=== PATIENT | female | born 1970 | race American Indian/Alaskan Native ===

== ENCOUNTER 2017-04-13 07:50 | Inpatient (IN) | payer OTHER ==
[2017-04-13 08:48] LABS: Bilirubin,Urine NEG (Negative); Blood,Urine NEG (Negative); Ketones,Urine NEG (Negative); Leukocyte Esterase,Urine NEG (Negative); Mucus,Urine 2+ /HPF; Nitrite,Urine NEG (Negative); Protein,Urine <15 mg/dL mg/dL (Negative); Urobilinogen,Urine < 2.0 mg/dL (<2.0)
[2017-04-13 09:00] LABS: Alanine Aminotransferase 21 units/L (7-56); Albumin/Globulin Ratio 1.1 %; Alkaline Phosphatase 38 units/L (35-129); Anion Gap 17 mmol/L; Blood Urea Nitrogen 12 mg/dL (7-17); Calcium 8.6 mg/dL (8.4-10.2); Carbon Dioxide 24 mmol/L (22-30); Chloride 101.9 mmol/L (98-107); Glucose 94 mg/dL (65-100); Lipase 39 units/L (13-60); Sodium 139 mmol/L (137-145); Total Protein 7.8 g/dL (6.3-8.2)
[2017-04-13 09:38] LABS: Basophils % (Auto) 1.9 % (0.0-1.8); Eosinophils % (Auto) 2.7 % (0.0-4.3); Mean Corpuscular HGB Conc 28 % (30-34); Platelet Count 448 K/mm3 (140-440); Red Blood Count 4.27 M/mm3 (3.65-5.03); White Blood Count 4.9 K/mm3 (4.5-11.0)
[2017-04-13 09:39] LABS: Hematocrit 24.1 % (30.3-42.9); Hemoglobin 6.8 gm/dl (10.1-14.3); Mean Corpuscular Hemoglobin 16 pg (28-32); Mean Corpuscular Volume 56 fl (79-97); Red Cell Distribution Width 21.2 % (13.2-15.2)
--- NOTE | 2017-04-13 10:51 | Emergency Department Report ---
ED Abdominal Pain HPI - General Chief Complaint: Abdominal Pain Stated Complaint: LEFT LEG PAIN/PAIN UPPER LEFT ABDOMEN Time Seen by Provider: 04/13/17 10:50 Source: patient Mode of arrival: Ambulatory Limitations: No Limitations - History of Present Illness Initial Comments: Patient states that she has had left upper quadrant discomfort for about a month. She was concerned because she had a "burning" sensation in the left upper quadrant over the last 3 days. She states that that is actually the reason why she came to the emergency department. She states that sometimes her stool is dark but she seen no blood or black stool recently. She does not complain of diarrhea. She states that she has very heavy periods and she went to the health department who told her "it was normal". She denies previous transfusion. She states that her periods are chronically heavy and irregular. She has not received a transfusion except during childbirth 20 years ago. She states that she does get easily fatigued and has some shortness of breath on exertion. MD Complaint: abdominal pain -: month(s) Location: [facility] Radiation: none Migration to: no migration Severity: moderate Severity scale (0 -10): 6 Quality: burning Consistency: intermittent Improves With: nothing Worsens With: nothing Associated Symptoms: denies other symptoms (as above described) - Related Data Home Medications Medication Instructions Recorded Confirmed Last Taken No Known Home Medications [No 04/13/17 04/13/17 Unknown Reported Home Medications] Allergies Allergy/AdvReac Type Severity Reaction Status Date / Time No Known Allergies Allergy Unverified 04/13/17 08:12 ED Review of Systems ROS: Stated complaint: LEFT LEG PAIN/PAIN UPPER LEFT ABDOMEN Other details as noted in HPI Constitutional: denies: chills, fever Eyes: denies: eye pain, eye discharge, vision change ENT: denies: ear pain, throat pain Respiratory: denies: cough, shortness of breath, wheezing Cardiovascular: denies: chest pain, palpitations Endocrine: no symptoms reported Gastrointestinal: abdominal pain, nausea. denies: diarrhea Genitourinary: abnormal menses. denies: urgency, dysuria, discharge Musculoskeletal: denies: back pain, joint swelling, arthralgia Skin: denies: rash, lesions Neurological: denies: headache, weakness, paresthesias Psychiatric: denies: anxiety, depression Hematological/Lymphatic: denies: easy bleeding, easy bruising ED Past Medical Hx - Past Medical History Previous Medical History?: No - Surgical History Past Surgical History?: Yes Additional Surgical History: x3 - Social History Smoking Status: Never Smoker Substance Use Type: Alcohol - Medications Home Medications: Home Medications Medication Instructions Recorded Confirmed Last Taken Type No Known Home Medications [No 04/13/17 04/13/17 Unknown History Reported Home Medications] ED Physical Exam - General Limitations: No Limitations General appearance: alert, in no apparent distress - Head Head exam: Present: atraumatic, normocephalic - Eye Eye exam: Present: normal appearance. Absent: scleral icterus - ENT ENT exam: Present: mucous membranes moist - Neck Neck exam: Present: normal inspection - Respiratory Respiratory exam: Present: normal lung sounds bilaterally. Absent: respiratory distress - Cardiovascular Cardiovascular Exam: Present: regular rate, normal rhythm. Absent: systolic murmur, diastolic murmur, rubs, gallop - GI/Abdominal GI/Abdominal exam: Present: soft, normal bowel sounds. Absent: distended, tenderness, guarding, rebound, rigid, organomegaly, mass, bruit, pulsatile mass , hernia - Extremities Exam Extremities exam: Present: normal inspection - Back Exam Back exam: Present: normal inspection - Neurological Exam Neurological exam: Present: alert, oriented X3, CN II-XII intact. Absent: motor sensory deficit - Psychiatric Psychiatric exam: Present: normal affect, normal mood - Skin Skin exam: Present: warm, dry, intact, normal color. Absent: rash ED Course Vital Signs 04/13/17 04/13/17 04/13/17 08:08 09:05 09:06 Temperature 98.5 F Pulse Rate 98 H Respiratory 16 Rate Blood Pressure 113/71 Blood Pressure [Right] O2 Sat by Pulse 98 100 99 Oximetry 04/13/17 04/13/17 04/13/17 09:08 09:09 09:10 Temperature Pulse Rate 96 H 92 H Respiratory 18 12 Rate Blood Pressure 103/70 103/70 Blood Pressure [Right] O2 Sat by Pulse 100 100 Oximetry 04/13/17 04/13/17 04/13/17 09:12 09:15 11:44 Temperature 98.2 F Pulse Rate 86 90 83 Respiratory 18 18 16 Rate Blood Pressure 103/70 107/68 Blood Pressure 103/70 [Right] O2 Sat by Pulse 100 100 Oximetry 04/13/17 04/13/17 04/13/17 11:46 11:48 11:50 Temperature Pulse Rate 90 85 81 Respiratory 14 14 11 L Rate Blood Pressure 107/68 107/68 107/68 Blood Pressure [Right] O2 Sat by Pulse Oximetry 04/13/17 04/13/17 04/13/17 11:52 11:54 11:56 Temperature Pulse Rate 81 81 78 Respiratory 12 13 14 Rate Blood Pressure 107/68 107/68 107/68 Blood Pressure [Right] O2 Sat by Pulse Oximetry 04/13/17 04/13/17 04/13/17 11:58 12:00 12:02 Temperature Pulse Rate 79 84 79 Respiratory 13 11 L 13 Rate Blood Pressure 107/68 107/68 107/68 Blood Pressure [Right] O2 Sat by Pulse 95 Oximetry 04/13/17 04/13/17 04/13/17 12:04 12:06 12:08 Temperature Pulse Rate 77 81 84 Respiratory 15 13 12 Rate Blood Pressure 107/68 107/68 107/68 Blood Pressure [Right] O2 Sat by Pulse 50 L Oximetry 04/13/17 04/13/17 04/13/17 12:10 12:12 12:14 Temperature Pulse Rate 75 81 86 Respiratory 15 17 14 Rate Blood Pressure 107/68 107/68 104/65 Blood Pressure [Right] O2 Sat by Pulse 100 Oximetry 04/13/17 04/13/17 04/13/17 12:16 12:18 12:20 Temperature Pulse Rate 83 80 89 Respiratory 17 12 18 Rate Blood Pressure 104/65 104/65 104/65 Blood Pressure [Right] O2 Sat by Pulse 100 100 100 Oximetry 04/13/17 04/13/17 04/13/17 12:22 12:24 12:26 Temperature Pulse Rate 83 80 74 Respiratory 17 17 15 Rate Blood Pressure 104/65 104/65 104/65 Blood Pressure [Right] O2 Sat by Pulse 100 100 99 Oximetry 04/13/17 04/13/17 04/13/17 12:28 12:30 12:32 Temperature Pulse Rate 85 83 72 Respiratory 13 13 12 Rate Blood Pressure 104/65 104/65 104/65 Blood Pressure [Right] O2 Sat by Pulse 98 91 100 Oximetry 04/13/17 04/13/17 04/13/17 12:34 12:36 12:38 Temperature Pulse Rate 76 75 74 Respiratory 18 18 16 Rate Blood Pressure 104/65 104/65 104/65 Blood Pressure [Right] O2 Sat by Pulse 100 100 100 Oximetry 04/13/17 04/13/17 04/13/17 12:40 12:42 12:44 Temperature Pulse Rate 80 78 73 Respiratory 19 17 21 Rate Blood Pressure 104/65 104/65 104/65 Blood Pressure [Right] O2 Sat by Pulse 99 100 100 Oximetry 04/13/17 04/13/17 04/13/17 12:46 12:48 12:50 Temperature Pulse Rate 79 77 77 Respiratory 16 17 15 Rate Blood Pressure 104/65 104/65 104/65 Blood Pressure [Right] O2 Sat by Pulse 96 100 100 Oximetry 04/13/17 04/13/17 04/13/17 12:52 12:54 12:56 Temperature Pulse Rate 85 75 76 Respiratory 19 20 18 Rate Blood Pressure 104/65 104/65 104/65 Blood Pressure [Right] O2 Sat by Pulse 100 100 100 Oximetry 04/13/17 04/13/17 04/13/17 12:58 13:00 13:02 Temperature Pulse Rate 77 83 82 Respiratory 19 14 17 Rate Blood Pressure 104/65 105/63 105/63 Blood Pressure [Right] O2 Sat by Pulse 100 100 100 Oximetry 04/13/17 04/13/17 04/13/17 13:04 13:06 13:08 Temperature Pulse Rate 79 80 78 Respiratory 17 21 13 Rate Blood Pressure 105/63 105/63 105/63 Blood Pressure [Right] O2 Sat by Pulse 100 100 90 Oximetry 04/13/17 04/13/17 04/13/17 13:10 13:12 13:14 Temperature Pulse Rate 77 77 82 Respiratory 18 19 17 Rate Blood Pressure 105/63 105/63 105/63 Blood Pressure [Right] O2 Sat by Pulse 95 100 100 Oximetry 04/13/17 04/13/17 04/13/17 13:16 13:18 13:20 Temperature Pulse Rate 75 73 78 Respiratory 15 15 16 Rate Blood Pressure 105/63 105/63 105/63 Blood Pressure [Right] O2 Sat by Pulse 100 100 100 Oximetry 04/13/17 13:22 Temperature Pulse Rate 77 Respiratory 16 Rate Blood Pressure 105/63 Blood Pressure [Right] O2 Sat by Pulse 100 Oximetry - Reevaluation(s) Reevaluation #1: This was discussed in detail with Dr. Barrios. A unit of blood was ordered. Patient was admitted to the hospitalist service in stable condition. 04/13/17 16:46 ED Medical Decision Making - Lab Data Result diagrams: 04/13/17 08:27 04/13/17 08:27 Laboratory Results - last 24 hr 04/13/17 04/13/17 04/13/17 08:24 08:27 08:27 WBC 4.9 RBC 4.27 Hgb 6.8 L Hct 24.1 L MCV 56 L MCH 16 L MCHC 28 L RDW 21.2 H Plt Count 448 H Lymph % (Auto) 45.0 H Owen % (Auto) 13.9 H Eos % (Auto) 2.7 Baso % (Auto) 1.9 H Lymph # 2.2 Owen # 0.7 Eos # 0.1 Baso # 0.1 Seg Neutrophils % 36.5 L Seg Neutrophils # 1.8 Sodium 139 Potassium 4.0 Chloride 101.9 Carbon Dioxide 24 Anion Gap 17 BUN 12 Creatinine 0.6 L Estimated GFR > 60 BUN/Creatinine Ratio 20.00 Glucose 94 Calcium 8.6 Total Bilirubin 0.30 AST 25 ALT 21 Alkaline Phosphatase 38 Total Protein 7.8 Albumin 4.0 Albumin/Globulin Ratio 1.1 Lipase 39 Urine Color Yellow Urine Turbidity Clear Urine pH 5.0 Ur Specific [place] 1.023 Urine Protein <15 mg/dl Urine Glucose (UA) Neg Urine Ketones Neg Urine Blood Neg Urine Nitrite Neg Urine Bilirubin Neg Urine Urobilinogen < 2.0 Ur Leukocyte Esterase Neg Urine WBC (Auto) 1.0 Urine RBC (Auto) 2.0 U Epithel Cells (Auto) 3.0 Urine Mucus 2+ Laboratory Results - last 24 hr 04/13/17 04/13/17 04/13/17 08:24 08:24 08:27 WBC 4.9 RBC 4.27 Hgb 6.8 L Hct 24.1 L MCV 56 L MCH 16 L MCHC 28 L RDW 21.2 H Plt Count 448 H Lymph % (Auto) 45.0 H Owen % (Auto) 13.9 H Eos % (Auto) 2.7 Baso % (Auto) 1.9 H Lymph # 2.2 Owen # 0.7 Eos # 0.1 Baso # 0.1 Seg Neutrophils % 36.5 L Seg Neutrophils # 1.8 Sodium Potassium Chloride Carbon Dioxide Anion Gap BUN Creatinine Estimated GFR BUN/Creatinine Ratio Glucose Calcium Total Bilirubin AST ALT Alkaline Phosphatase Total Protein Albumin Albumin/Globulin Ratio Lipase Urine Color Yellow Urine Turbidity Clear Urine pH 5.0 Ur Specific [place] 1.023 Urine Protein <15 mg/dl Urine Glucose (UA) Neg Urine Ketones Neg Urine Blood Neg Urine Nitrite Neg Urine Bilirubin Neg Urine Urobilinogen < 2.0 Ur Leukocyte Esterase Neg Urine WBC (Auto) 1.0 Urine RBC (Auto) 2.0 U Epithel Cells (Auto) 3.0 Urine Mucus 2+ Urine HCG, Qual Negative 04/13/17 08:27 WBC RBC Hgb Hct MCV MCH MCHC RDW Plt Count Lymph % (Auto) Owen % (Auto) Eos % (Auto) Baso % (Auto) Lymph # Owen # Eos # Baso # Seg Neutrophils % Seg Neutrophils # Sodium 139 Potassium 4.0 Chloride 101.9 Carbon Dioxide 24 Anion Gap 17 BUN 12 Creatinine 0.6 L Estimated GFR > 60 BUN/Creatinine Ratio 20.00 Glucose 94 Calcium 8.6 Total Bilirubin 0.30 AST 25 ALT 21 Alkaline Phosphatase 38 Total Protein 7.8 Albumin 4.0 Albumin/Globulin Ratio 1.1 Lipase 39 Urine Color Urine Turbidity Urine pH Ur Specific [place] Urine Protein Urine Glucose (UA) Urine Ketones Urine Blood Urine Nitrite Urine Bilirubin Urine Urobilinogen Ur Leukocyte Esterase Urine WBC (Auto) Urine RBC (Auto) U Epithel Cells (Auto) Urine Mucus Urine HCG, Qual Critical care attestation.: If time is entered above; I have spent that time in minutes in the direct care of this critically ill patient, excluding procedure time. ED Disposition Clinical Impression: Symptomatic anemia, Dysfunctional uterine bleeding Abdominal pain Qualifiers: Abdominal location: left upper quadrant Qualified Code(s): R10.12 - Left upper quadrant pain Disposition: OP ADMIT IP TO THIS HOSP Is pt being admited?: Yes Does the pt Need Aspirin: No Condition: Stable Time of Disposition: 16:47
[2017-04-13] MEDS ORDERED: NACL 0.9% 500 ML 500 ML IV ONE ×2 (11:18→18:12)
[2017-04-13] MEDS ORDERED: NACL 0.9% 1000 ML 1,000 ML IV ONE (11:19)
[2017-04-13] MEDS ORDERED: PEPCID IV ONE (11:19)
[2017-04-13 12:30] LABS: INR 0.98 (0.87-1.13); Partial Thromboplastin Time 27.1 Sec. (24.2-36.6)
--- NOTE | 2017-04-13 12:32 | Admit Criteria Form ---
Admission Criteria Documentation: ANEMIA, IRON DEFICIENCY OR UNSPECIFIED Clinical Indications for Inpatient Care (Place 'X' for any and all applicable criteria): Admission is indicated for ANY ONE of the following(1)(2)(3)(4)(5)(6)(7): [X] I. Inpatient admission required rather than observation care (Also use Anemia, Iron Deficiency or Unspecified: Observation Care guideline as appropriate) because of ANY ONE of the following: [] a) Hemodynamic instability that is severe or persistent [] b) Active bleeding that cannot be rapidly controlled [] c) CVS symptoms (i.e., dyspnea, chest pain, heart failure) that are severe or persistent [] d) Neurologic symptoms (i.e., cognitive impairment, recurrent syncope or near syncope) that are severe or persistent [] e) Cardiac arrhythmias of immediate concern [] f) Acute peripheral ischemia (e.g., pulseless, cool, mottled, or cyanotic extremity) [] g) High-risk low platelet count [] h) Acute renal failure [] i) Ongoing transfusion for blood loss (greater than 2 units) [] j) IV fluid to replace significant ongoing (eg, >24 hours) losses (> 3 L/m2 per day) [] k) Pulmonary artery catheter monitoring [] l) Supplemental oxygen or respiratory treatments for over 24 hours that are performable only in acute inpatient setting [] m) Immediate inpatient surgery [X] n) Other condition, treatment or monitoring requiring inpatient admission [] II Active massive hemorrhage [] III. Active hemolysis with rapidly progressive anemia [A](6) Extended stay beyond goal length of stay may be needed for (17)(18) []a) Diagnosed cause of anemia requiring longer hospitalization (eg, active GI bleeding, immune hemolysis requiring electrophoresis, complications of malignancy requiring acute care []b) Continued emergent anemia indicators (23) []c) Transfusion reactions []d) Associated leukopenia or thrombocytopenia needing inpatient care []e) Active comorbidities (eg, renal failure, heart failure) The original [facility] Care Guidelines content created by [facility] Care Guidelines has been revised. The portions of the content which have been revised are identified through the use of italic text or in bold. [facility] Guidelines has neither reviewed nor approved the modified material. All other unmodified content is copyright [facility] Care Guidelines. Please see references footnoted in the original [facility] edition 2016 Admission Criteria Met: Yes
[2017-04-13] MEDS ORDERED: MILK OF MAGNESIA PO PRN (18:03)
[2017-04-13] MEDS ORDERED: ZOFRAN IV PRN (18:03)
[2017-04-13] MEDS ORDERED: DULCOLAX PR PRN (18:03)
[2017-04-13] MEDS ORDERED: D5NS 1,000 ML IV SCH (19:00)
[2017-04-13] MEDS: TYLENOL PO PRN (20:21)
--- NOTE | 2017-04-13 20:58 | History and Physical Report ---
History of Present Illness Date of examination: 04/13/17 Date of admission: 04/13/17 12:02 Chief complaint: L Flank pain for 3 days History of present illness: [place]: 47 y/o AAF comes in for L flank pain of 3 days duration.Intermittent in nature.Also feeling weak.Also heavy menstrual periods lasting 5 to 7 days.No exacerbating or relieving factors.No fever or chills.Needs about 5 diapers in a given day during menstrual periods.No workup was done as outpatient. - Past Medical History Previous Medical History?: No - Surgical History Past Surgical History?: Yes Additional Surgical History: x3 - Social History Smoking Status: Never Smoker Substance Use Type: Alcohol - Medications Home Medications: Home Medications Medication Instructions Recorded Confirmed Last Taken Type No Known Home Medications [No 04/13/17 04/13/17 Unknown History Reported Home Medications] Review of Systems ROS: Stated complaint: LEFT LEG PAIN/PAIN UPPER LEFT ABDOMEN Other details as noted in HPI Constitutional: denies: chills, fever Eyes: denies: eye pain, eye discharge, vision change ENT: denies: ear pain, throat pain Respiratory: denies: cough, shortness of breath, wheezing Cardiovascular: denies: chest pain, palpitations Endocrine: no symptoms reported Gastrointestinal: abdominal pain, nausea. denies: diarrhea Genitourinary: abnormal menses. denies: urgency, dysuria, discharge Musculoskeletal: denies: back pain, joint swelling, arthralgia Skin: denies: rash, lesions Neurological: denies: headache, weakness, paresthesias Psychiatric: denies: anxiety, depression Hematological/Lymphatic: denies: easy bleeding, easy bruising Medications and Allergies Allergies Allergy/AdvReac Type Severity Reaction Status Date / Time No Known Allergies Allergy Unverified 04/13/17 08:12 Home Medications Medication Instructions Recorded Confirmed Last Taken Type No Known Home Medications [No 04/13/17 04/13/17 Unknown History Reported Home Medications] Active Meds: Active Medications Acetaminophen (Tylenol) 650 mg PO Q4H PRN PRN Reason: Pain MILD(1-3)/Fever >100.5/ALATORRE Last Admin: 04/13/17 20:21 Dose: 650 mg Bisacodyl (Dulcolax) 10 mg TN QDAY PRN PRN Reason: Constipation unrelieved by MOM Famotidine (Pepcid) 20 mg IV BID RAGHAV Dextrose/Sodium Chloride (D5ns) 1,000 mls @ 42 mls/hr IV DIRECT RAGHAV Magnesium Hydroxide (Milk Of Magnesia) 30 ml PO Q4H PRN PRN Reason: Constipation Ondansetron HCl (Zofran) 4 mg IV Q8H PRN PRN Reason: N/V unrelieved by Reglan Exam - Physical Exam Narrative exam: Lying comfortably - Constitutional Vitals: Temp Pulse Resp BP Pulse Ox 98.8 F 77 20 105/67 100 04/13/17 17:36 04/13/17 17:36 04/13/17 20:21 04/13/17 17:36 04/13/17 17:36 General appearance: Present: no acute distress, well-nourished - EENT Eyes: Present: PERRL ENT: hearing intact, clear oral mucosa, other (Pale mucous membranes) - Neck Neck: Present: supple, normal ROM - Respiratory Respiratory effort: normal Respiratory: bilateral: CTA - Cardiovascular Heart Sounds: Present: S1 & S2. Absent: rub, click - Extremities Extremities: pulses symmetrical, No edema Peripheral Pulses: within normal limits - Abdominal General gastrointestinal: Present: soft, non-tender, non-distended, normal bowel sounds Female genitourinary: Present: normal - Integumentary Integumentary: Present: clear, warm, dry - Musculoskeletal Musculoskeletal: gait normal, strength equal bilaterally - Psychiatric Psychiatric: appropriate mood/affect, intact judgment & insight - Neurologic Neurologic: CNII-XII intact, moves all extremities Results - Labs CBC & Chem 7: 04/14/17 05:40 04/14/17 05:40 Labs: Laboratory Last Values WBC 4.9 K/mm3 (4.5-11.0) 04/13/17 08:27 RBC 4.27 M/mm3 (3.65-5.03) 04/13/17 08:27 Hgb 6.8 gm/dl (10.1-14.3) L 04/13/17 08:27 Hct 24.1 % (30.3-42.9) L 04/13/17 08:27 MCV 56 fl (79-97) L 04/13/17 08:27 MCH 16 pg (28-32) L 04/13/17 08:27 MCHC 28 % (30-34) L 04/13/17 08:27 RDW 21.2 % (13.2-15.2) H 04/13/17 08:27 Plt Count 448 K/mm3 (140-440) H 04/13/17 08:27 Lymph % (Auto) 45.0 % (13.4-35.0) H 04/13/17 08:27 Charles % (Auto) 13.9 % (0.0-7.3) H 04/13/17 08:27 Eos % (Auto) 2.7 % (0.0-4.3) 04/13/17 08:27 Baso % (Auto) 1.9 % (0.0-1.8) H 04/13/17 08:27 Lymph # 2.2 K/mm3 (1.2-5.4) 04/13/17 08:27 Charles # 0.7 K/mm3 (0.0-0.8) 04/13/17 08: Eos # 0.1 K/mm3 (0.0-0.4) 04/13/17 08:27 Baso # 0.1 K/mm3 (0.0-0.1) 04/13/17 08:27 Seg Neutrophils % 36.5 % (40.0-70.0) L 04/13/17 08: Seg Neutrophils # 1.8 K/mm3 (1.8-7.7) 04/13/17 08:27 PT 12.9 Sec. (12.2-14.9) 04/13/17 Unknown INR 0.98 (0.87-1.13) 04/13/17 Unknown APTT 27.1 Sec. (24.2-36.6) 04/13/17 Unknown Sodium 139 mmol/L (137-145) 04/13/17 08:27 Potassium 4.0 mmol/L (3.6-5.0) 04/13/17 08: Chloride 101.9 mmol/L (98-107) 04/13/17 08:27 Carbon Dioxide 24 mmol/L (22-30) 04/13/17 08:27 Anion Gap 17 mmol/L 04/13/17 08:27 BUN 12 mg/dL (7-17) 04/13/17 08:27 Creatinine 0.6 mg/dL (0.7-1.2) L 04/13/17 08:27 Estimated GFR > 60 ml/min 04/13/17 08:27 BUN/Creatinine Ratio 20.00 % 04/13/17 08:27 Glucose 94 mg/dL (65-100) 04/13/17 08:27 Calcium 8.6 mg/dL (8.4-10.2) 04/13/17 08:27 Total Bilirubin 0.30 mg/dL (0.1-1.2) 04/13/17 08:27 AST 25 units/L (5-40) 04/13/17 08:27 ALT 21 units/L (7-56) 04/13/17 08:27 Alkaline Phosphatase 38 units/L (35-129) 04/13/17 08:27 Total Protein 7.8 g/dL (6.3-8.2) 04/13/17 08:27 Albumin 4.0 g/dL (3.9-5) 04/13/17 08: Albumin/Globulin Ratio 1.1 % 04/13/17 08:27 Lipase 39 units/L (13-60) 04/13/17 08:27 Urine Color Yellow (Yellow) 04/13/17 08:24 Urine Turbidity Clear (Clear) 04/13/17 08:24 Urine pH 5.0 (5.0-7.0) 04/13/17 08:24 Ur Specific [place] 1.023 (1.003-1.030) 04/13/17 08:24 Urine Protein <15 mg/dl mg/dL (Negative) 04/13/17 08:24 Urine Glucose (UA) Neg mg/dL (Negative) 04/13/17 08:24 Urine Ketones Neg mg/dL (Negative) 04/13/17 08:24 Urine Blood Neg (Negative) 04/13/17 08:24 Urine Nitrite Neg (Negative) 04/13/17 08:24 Urine Bilirubin Neg (Negative) 04/13/17 08:24 Urine Urobilinogen < 2.0 mg/dL (<2.0) 04/13/17 08:24 Ur Leukocyte Esterase Neg (Negative) 04/13/17 08:24 Urine WBC (Auto) 1.0 /HPF (0.0-6.0) 04/13/17 08:24 Urine RBC (Auto) 2.0 /HPF (0.0-6.0) 04/13/17 08:24 U Epithel Cells (Auto) 3.0 /HPF (0-13.0) 04/13/17 08:24 Urine Mucus 2+ /HPF 04/13/17 08:24 Urine HCG, Qual Negative (Negative) 04/13/17 08:24 Blood Type A NEGATIVE 04/13/17 12:10 Antibody Screen Negative 04/13/17 12:10 Crossmatch See Detail 04/13/17 12:10 Short CBC 04/13/17 04/14/17 Range/Units 08:27 05:40 WBC 4.9 4.4 L (4.5-11.0) K/mm3 Hgb 6.8 L 8.7 L (10.1-14.3) gm/dl Hct 24.1 L 27.0 L (30.3-42.9) % Plt Count 448 H 341 (140-440) K/mm3 BMP 04/13/17 04/14/17 08:27 05:40 Sodium 139 137 Potassium 4.0 3.8 Chloride 101.9 104.3 Carbon Dioxide 24 21 L BUN 12 9 Creatinine 0.6 L 0.5 L Glucose 94 93 Calcium 8.6 8.4 Liver Function 04/13/17 Range/Units 08:27 Total Bilirubin 0.30 (0.1-1.2) mg/dL AST 25 (5-40) units/L ALT 21 (7-56) units/L Alkaline Phosphatase 38 (35-129) units/L Albumin 4.0 (3.9-5) g/dL Urine 04/13/17 Range/Units 08:24 Urine Color Yellow (Yellow) Urine pH 5.0 (5.0-7.0) Ur Specific [place] 1.023 (1.003-1.030) Urine Protein <15 mg/dl (Negative) mg/dL Urine Glucose (UA) Neg (Negative) mg/dL Assessment and Plan Advance Directives: Yes (FC) VTE prophylaxis?: Mechanical Plan of care discussed with patient/family: Yes - Patient Problems (1) Acute blood loss anemia Current Visit: Yes Status: Acute Plan to address problem: Sec to DUB/Menorrhagia. 2 units of PRBC transfused (2) Dysfunctional uterine bleeding Current Visit: Yes Status: Chronic Plan to address problem: Patient may need Hsterectomy as outpatient Literacy Coach consult ordered.To follow with Literacy Coach as outpatient (3) Abdominal pain Current Visit: Yes Status: Acute Qualifiers: Abdominal location: left upper quadrant Qualified Code(s): R10.12 - Left upper quadrant pain Plan to address problem: Resolved. Constipation induced?? No imaging studies. KUB ordered (4) DVT prophylaxis Current Visit: Yes Status: Acute Plan to address problem: Scd's only
[2017-04-13] MEDS ORDERED: NACL 0.9% 500 ML 500 ML ONE (21:48)
[2017-04-13] MEDS: PEPCID IV SCH (22:27)
[2017-04-14] MEDS: TYLENOL PO PRN (03:28)
[2017-04-14 06:22] LABS: Hemoglobin 8.7 gm/dl (10.1-14.3); Red Blood Count 4.39 M/mm3 (3.65-5.03); White Blood Count 4.4 K/mm3 (4.5-11.0)
[2017-04-14 06:23] LABS: Mean Corpuscular HGB Conc 32 % (30-34); Platelet Count 341 K/mm3 (140-440)
[2017-04-14 06:25] LABS: Mean Corpuscular Hemoglobin 20 pg (28-32); Mean Corpuscular Volume 62 fl (79-97); Red Cell Distribution Width 28.4 % (13.2-15.2)
[2017-04-14 06:30] LABS: Anion Gap 16 mmol/L; Blood Urea Nitrogen 9 mg/dL (7-17); Calcium 8.4 mg/dL (8.4-10.2); Carbon Dioxide 21 mmol/L (22-30); Chloride 104.3 mmol/L (98-107); Glucose 93 mg/dL (65-100); Potassium 3.8 mmol/L (3.6-5.0); Sodium 137 mmol/L (137-145)
[2017-04-14 07:39] LABS: Basophils % (Manual) 0 % (0.0-1.8); Blastocytes % (Manual) 0 %
[2017-04-14 07:40] LABS: Anisocytosis 3+; Hypochromasia 2+; Microcytosis 2+
[2017-04-14 07:41] LABS: Diff Status Complete; Polychromasia Rare
--- NOTE | 2017-04-14 09:30 | XRay Report ---
SUPINE KUB: History: Left flank pain. The abdominal gas pattern is unremarkable. No masses or organomegaly is identified and there is no gross evidence of free air or fluid. There are multiple, bilateral pelvic phleboliths but no definite nephrolithiasis. IMPRESSION: Unremarkable abdomen.
[2017-04-14] MEDS: PEPCID IV SCH (10:40)
--- NOTE | 2017-04-14 13:22 | Consultation ---
History of Present Illness Consult date: 04/14/17 Requesting physician: RUSSELL YUSUF Reason for consult: pelvic pain History of present illness: Pt is a 47 y/o BF LMP 03/24/17 hospitalized for evaluation of left flank pain of 3 days duration which has been intermittent in nature. She is also feeling weak with heavy menstrual periods lasting 5 to 7 days. She denies exacerbating or relieving factors. She does not have a Experienced Truck [employer] physician, and thus I have been consulted to further evaluate her for fibroids. A pelvic u/s has been ordered. Past History Past Medical History: no pertinent history Past Surgical History: section (x3), other (BTL) Family/Genetic History: none Social history: no significant social history Medications and Allergies Allergies Allergy/AdvReac Type Severity Reaction Status Date / Time No Known Allergies Allergy Unverified 04/13/17 08:12 Home Medications Medication Instructions Recorded Confirmed Last Taken Type Docusate Sodium [Colace] 100 mg PO BID #60 capsule 04/14/17 Unknown Rx Ferrous Sulfate [Feosol 325 MG tab] 325 mg PO BID #60 tablet 04/14/17 Unknown Rx Active Meds: Active Medications Acetaminophen (Tylenol) 650 mg PO Q4H PRN PRN Reason: Pain MILD(1-3)/Fever >100.5/ALATORRE Last Admin: 04/14/17 03:28 Dose: 650 mg Bisacodyl (Dulcolax) 10 mg MT QDAY PRN PRN Reason: Constipation unrelieved by MOM Famotidine (Pepcid) 20 mg IV BID [facility] Last Admin: 04/14/17 10:40 Dose: 20 mg Dextrose/Sodium Chloride (D5ns) 1,000 mls @ 42 mls/hr IV DIRECT [facility] Last Admin: 04/14/17 03:12 Dose: 42 mls/hr Magnesium Hydroxide (Milk Of Magnesia) 30 ml PO Q4H PRN PRN Reason: Constipation Ondansetron HCl (Zofran) 4 mg IV Q8H PRN PRN Reason: N/V unrelieved by Reglan Review of Systems All systems: negative - Vital Signs Vital signs: Vital Signs Temp Pulse Resp BP Pulse Ox 98.5 F 98 H 16 113/71 98 04/13/17 08:08 04/13/17 08:08 04/13/17 08:08 04/13/17 08:08 04/13/17 08:08 Temp Pulse Resp BP Pulse Ox 99.5 F 80 18 105/60 100 04/14/17 07:10 04/14/17 07:10 04/14/17 07:10 04/14/17 07:10 04/14/17 07:10 - Physical Exam Breasts: Positive: deferred Cardiovascular: Regular rate Lungs: Positive: Clear to auscultation Abdomen: Positive: normal appearance, other (well healed vertical scar) Extremities: Positive: normal Results Result Diagrams: 04/14/17 05:40 04/14/17 05:40 Abnormal lab results 04/13/17 04/14/17 04/14/17 Range/Units 12:10 05:40 05:40 WBC 4.4 L (4.5-11.0) K/mm3 Hgb 8.7 L (10.1-14.3) gm/dl Hct 27.0 L (30.3-42.9) % MCV 62 L (79-97) fl MCH 20 L (28-32) pg RDW 28.4 H (13.2-15.2) % Lymphocytes % (Manual) 36.0 H (13.4-35.0) % Eosinophils % (Manual) 9.0 H (0.0-4.3) % Carbon Dioxide 21 L (22-30) mmol/L Creatinine 0.5 L (0.7-1.2) mg/dL Crossmatch See Detail All other labs normal. Ultrasound: pending Assessment and Plan - Patient Problems (1) Abdominal pain Onset Date: 04/13/17 Current Visit: Yes Status: Acute Qualifiers: Abdominal location: left upper quadrant Qualified Code(s): R10.12 - Left upper quadrant pain (2) Symptomatic anemia Onset Date: 04/13/17 Current Visit: Yes Status: Chronic (3) Dysfunctional uterine bleeding Onset Date: 04/13/17 Current Visit: Yes Status: Acute Plan to address problem: A: Abdominal pain - possibly due to uterine fibroids Menorrhagia - most likely due to uterine fibroids Symptomatic anemia - due to menorrhagia P: Agree with admission for blood transfusion Pelvic u/s ordered Discussed with pt to follow up in my office for treatment for menorrgahia
--- NOTE | 2017-04-14 15:50 | Discharge Summary ---
Providers - Providers Date of Admission: 04/13/17 12:02 Date of discharge: 04/14/17 Attending physician: CAROLINA SMALLWOOD 04/13/17 18:03 Consult to Physician [CONS] Routine Consulting Provider: BRYAN ARMSTRONG Reason For Exam: menorrhagia Place consult to:: dr. armstrong Notified:: answering service Phone number called:: [phone] Was contact made?: No Time called:: 07:35 Comment:: assistant shift supervisor nurse called no answer, i called no answer??? Primary care physician: [employer] SCHED[employer]ER Hospitalization Condition: Fair Disposition: DC-01 TO HOME OR SELFCARE - Discharge Diagnoses (1) Acute blood loss anemia Status: Acute (2) Dysfunctional uterine bleeding Status: Acute Core Measure Documentation - Palliative Care Palliative Care/ Comfort Measures: Not Applicable - Core Measures Any of the following diagnoses?: none Exam - Constitutional Vitals: Temp Pulse Resp BP Pulse Ox 99.5 F 85 18 105/60 100 04/14/17 07:10 04/14/17 14:22 04/14/17 07:10 04/14/17 07:10 04/14/17 07:10 Plan Activity: no restrictions Diet: low fat, low cholesterol Additional Instructions: 1.Follow up with PCP or [facility] in 1 week. 2.Follow up with Dr. Cameron Armstrong in 1 week Follow up with: PRIMARY CARE, [Primary Care Provider] - 3-5 Days Prescriptions: Docusate Sodium [Colace] 100 mg PO BID #60 capsule Ferrous Sulfate [Feosol 325 MG tab] 325 mg PO BID #60 tablet
[2017-04-14 18:31] VITALS: BP 109/74
--- NOTE | 2017-04-14 21:32 | Ultrasound Report ---
FINAL REPORT EXAM: US PELVIC COMPLETE HISTORY: heavy periods COMPARISON: None available. TECHNIQUE: Several real-time grayscale and color Doppler images were obtained. Transabdominal and transvaginal exam. FINDINGS: Uterus is enlarged measuring 14.1 x 8.6 x 9.3 centimeters. Multiple uterine fibroids which obscure the endometrial stripe. At the posterior body and fundal margin the uterus is 6.2 x 5.1 x 6.0 centimeter fibroid. The fundal margin the uterus there are 2 fibroids measuring 4.0 x 2.7 x 3.7 centimeters and 3.9 x 2.2 x 2.6 centimeters. Three fibroids at the anterior body and fundal margin the uterus. The largest measures 3.5 centimeters. The right ovary measures 3.7 x 1.8 x 2.5 centimeters. The left ovary measures 4.1 x 2.8 x 3.6 centimeters. There is gross vascular flow to the ovaries. Trace fluid in the pelvis. Within the right ovary there is a complex cyst measuring 2.6 x 1.6 x 2.3 centimeters. This may have proteinaceous or hemorrhagic debris. Trace fluid at the margin of the right ovary. IMPRESSION: Multiple uterine fibroids. The largest is at the posterior body and fundal margin the uterus measuring 6.2 centimeters. Fibroids cause distortion of the endometrial stripe. Complex right ovarian cyst measuring 2.6 centimeters. This may have hemorrhagic or proteinaceous debris. Follow-up ultrasound and 8 weeks suggested to assess stability versus resolution. Trace fluid in the pelvis within physiologic limits.
== END 2017-04-14 19:00 | disposition home or self-care (01) | DRG 760 ==
LOC: ED 07:50 → 3A 12:02
PROVIDERS: ADMIT Internal Medicine; ATTEND Internal Medicine
DX: N93.8 Other specified abnormal uterine and vaginal bleeding (principal); D62 Acute posthemorrhagic anemia; N92.0 Excessive and frequent menstruation with regular cycle; Z98.891 History of uterine scar from previous surgery; Z98.51 Tubal ligation status
CPT/HCPCS: 36415; 74000; 76830; 76856; 80048; 80053; 81001; 81025; 83690; 85007; 85025; 85610; 85730; 86850; 86900; 86901; 86920; 96361; 96374; J7030; J7040; J7042; P9016

== ENCOUNTER 2018-09-23 05:05 | Emergency (ER) | payer OTHER ==
[2018-09-23] MEDS ORDERED: TYLENOL PO ONE (05:39)
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
[2018-09-23 07:58] LABS: HCG Qualitative,Urine Negative (Negative)
[2018-09-23] MEDS ORDERED: NORCO 5/325 PO NR (09:06)
[2018-09-23] MEDS ORDERED: NACL 0.9% IR NR (09:06)
[2018-09-23] MEDS ORDERED: XYLOCAINE 1% 20 mL INFILTRATI ONE (09:06)
[2018-09-23] MEDS ORDERED: BOOSTRIX IM ONE (09:06)
[2018-09-23] MEDS ORDERED: KEFLEX PO ONE (09:06)
[2018-09-23] MEDS ORDERED: TRIPLE ANTIBIOTIC TP ONE (09:06)
[2018-09-23 09:26] LABS: Hematocrit 21.8 % (30.3-42.9); Hemoglobin 6.9 gm/dl (10.1-14.3); Mean Corpuscular HGB Conc 32 % (30-34); Mean Corpuscular Volume 75 fl (79-97); Platelet Count 426 K/mm3 (140-440); Red Blood Count 2.89 M/mm3 (3.65-5.03)
[2018-09-23 09:27] LABS: Red Cell Distribution Width 22.7 % (13.2-15.2)
[2018-09-23 09:43] LABS: BUN/Creatinine Ratio 18; Blood Urea Nitrogen 11 mg/dL (7-17); Calcium 8.2 mg/dL (8.4-10.2); Hemolysis Index 1
[2018-09-23] MEDS ORDERED: ANCEF IM ONE (10:07)
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
[2018-09-23] MEDS ORDERED: WATER FOR INJ Sterile (PF) 10 ML ONE (10:32)
[2018-09-23 10:37] VITALS: BP 108/65
== END 2018-09-23 11:20 | disposition home or self-care (01) ==
LOC: ED 05:05
DX: S81.011A Laceration without foreign body, right knee, initial encounter (principal); S01.511A Laceration without foreign body of lip, initial encounter; S16.1XXA Strain of muscle, fascia and tendon at neck level, initial encounter; D64.9 Anemia, unspecified; W10.9XXA Fall (on) (from) unspecified stairs and steps, initial encounter; Y93.89 Activity, other specified; Y92.89 Other specified places as the place of occurrence of the external cause; Y99.8 Other external cause status
CPT/HCPCS: 12001; 12011; 36415; 70450; 70486; 72072; 72100; 72125; 73564; 80048; 81025; 85027; 90471; 90715; 96372; 99284; J0690; A6250

== ENCOUNTER 2018-09-30 12:12 | Emergency (ER) | payer SELFPAY ==
--- NOTE | 2018-09-30 13:08 | Emergency Department Report ---
Suture/Staple Removal - HPI Chief Complaint: Laceration/Recheck/Suture Stated Complaint: STITCHS REMOVED FROM RT KNEE Time Seen by Provider: 09/30/18 13:04 When Sutures or [place] Placed: 8-10 Days Ago Wound Location: Right Knee ED Review of Systems ROS: Stated complaint: STITCHS REMOVED FROM RT KNEE Other details as noted in HPI Comment: All other systems reviewed and negative ED Past Medical Hx - Past Medical History Additional medical history: Anemia, Fibroids - Surgical History Additional Surgical History: x3 - Social History Smoking Status: Never Smoker - Medications Home Medications: Home Medications Medication Instructions Recorded Confirmed Last Taken Type Cyclobenzaprine [Flexeril] 10 mg PO TID PRN #10 tablet 09/23/18 Unknown Rx Docusate Sodium [Colace] 100 mg PO BID #60 capsule 09/23/18 Unknown Rx Ferrous Sulfate [Feosol 325 MG tab] 325 mg PO BID #60 tablet 09/23/18 Unknown Rx cephALEXin [Keflex] 500 mg PO Q12HR #20 cap 09/23/18 Unknown Rx predniSONE [Deltasone] 20 mg PO DAILY #5 tablet 09/23/18 Unknown Rx traMADol [Ultram] 50 mg PO Q6HR PRN #10 tablet 09/23/18 Unknown Rx Suture Removal Exam - Exam General: Vital signs noted. No distress. Alert and acting appropriately. Wound: No Pathologic Erythema, No Tenderness, No Drainage, No Pus, No Wound Dehiscence Other Systems: All other systems reviewed and are unremarkable. ED Recheck MDM - Medical Decision Making 48 y o female presents with suture removal to the right knee sutures removed without any problems f/u with pcp. Wound care instructions given Critical care attestation.: If time is entered above; I have spent that time in minutes in the direct care of this critically ill patient, excluding procedure time. ED Disposition Clinical Impression: Visit for suture removal Disposition: - TO HOME OR SELFCARE Is pt being admited?: No Does the pt Need Aspirin: No Condition: Stable Instructions: Acute Wound Care (ED) Additional Instructions: f/u with pcp Referrals: [facility] [Outside] - 3-5 Days [facility] [Outside] - 3-5 Days Forms: Work/School Release Form(ED) Time of Disposition: 13:08
== END 2018-09-30 13:32 | disposition home or self-care (01) ==
LOC: ED 12:12